=== PATIENT | female | born 2005 | race Caucasian/White ===

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

== ENCOUNTER → 2023-06-11 | Outpatient (CLI) | payer OTHER ==
[2023-06-11 14:28] LABS: BASOPHILS ABSOLUTE AUTO 0.04 K/mm3 (0.00-0.23); BASOPHILS PERCENT AUTO 1 % (0-2); EOSINOPHILS ABSOLUTE AUTO 0.15 K/mm3 (0.00-0.68); EOSINOPHILS PERCENT AUTO 2 % (0-6); Hemoglobin 14.7 g/dL (11.5-16.0); IMMATURE GRAN ABSOLUTE AUTO 0.02 K/mm3 (0.00-0.10); IMMATURE GRAN PERCENT AUTO 0 % (0-1); LYMPHOCYTES ABSOLUTE AUTO 2.25 K/mm3 (0.84-5.20); LYMPHOCYTES PERCENT AUTO 32 % (21-46); MONOCYTES ABSOLUTE AUTO 0.37 K/mm3 (0.16-1.47); MONOCYTES PERCENT AUTO 5 % (4-13); Mean Corpuscular HGB 30.2 pg (26.0-34.0); Mean Corpuscular Volume 86 fL (80-100); Mean Platelet Volume 9.7 fL (9.1-12.4); NEUTROPHILS ABSOLUTE AUTO 4.16 K/mm3 (1.96-9.15); NEUTROPHILS PERCENT AUTO 60 % (41-73); Platelet Count 373 K/mm3 (150-400); RDW Coefficient Variation 12.1 % (11.7-14.2); RDW Standard Deviation 38.4 fL (35.1-46.3); Red Blood Cell Count 4.87 M/mm3 (3.80-5.20); White Blood Cell Count 6.99 K/mm3 (4.00-11.30)
[2023-06-13 03:40] LABS: A/G RATIO 1.8 (1.2-2.2); BILIRUBIN, TOTAL 0.7 mg/dL (0.0-1.2); CALCIUM, SERUM 9.3 mg/dL (8.7-10.2); CREATININE, SERUM 0.74 mg/dL (0.57-1.00); GLOBULIN, TOTAL 2.5 g/dL (1.5-4.5)
[2023-06-13 08:16] LABS: HIV 1,2 COMBO ANTIGEN/ANTIBODY Negative (Negative)
[2023-06-13 15:54] LABS: HEPATITIS A ANTIBODY, IGM Negative (Negative); HEPATITIS B CORE ANTIBODY, IGM Negative (Negative); HEPATITIS B SURFACE ANTIGEN Negative (Negative); HEPATITIS C AB CIA INTERP Negative (Negative); HEPATITIS C ANTIBODY CIA INDEX 0.05 IV
== END ==
LOC: LAB SHORT 08:50 → LAB 08:50
DX: Z72.51 High risk heterosexual behavior (principal)
CPT/HCPCS: 80053; 80074; 84443; 85025; 86592; 87389

== ENCOUNTER → 2024-08-23 | Outpatient (CLI) | payer BC | LOC: LAB SHORT 17:08 → LAB 17:08 | DX: R39.9 Unspecified symptoms and signs involving the genitourinary system (principal) | CPT/HCPCS: 87077; 87086; 87186 ==